=== PATIENT | male | born 1985 | race Caucasian/White ===

== ENCOUNTER 2024-02-21 00:49 | Emergency (ER) | payer OTHER, SELFPAY ==
[2024-02-21] VITALS (8 sets, daily range): BP systolic 145–161; BP diastolic 86–112; PULSE 68–111; RESP 16–20; TEMP 36.4–37.2; O2SAT 95–100; BMI 29.9
--- NOTE | ~2024-02-21 | XR_ITS ---
EXAMINATION: XR LUMBOSACRAL SPINE CLINICAL INFORMATION: Low back pain. COMPARISON: None available. TECHNIQUE: Three views of the lumbosacral spine. FINDINGS: The vertebral bodies and posterior elements are normal. The disc spaces are preserved and the vertebral alignment is normal. The paraspinal soft tissues are normal. XR/XR lumbar spine 2-3V IMPRESSION: No significant abnormality identified.
--- NOTE | 2024-02-21 01:51 | ED.BACK ---
HPI - Back Pain/Injury General Chief Complaint: Back Pain/Injury Stated Complaint: Back pain/ Leg numbness Time Seen by Provider: 02/21/24 01:48 Source: patient Mode of arrival: ambulatory Limitations: no limitations History of Present Illness HPI Narrative: 38-year-old male with history of factor 5 Leiden deficiency, pulmonary embolism presents emergency department for evaluation of lower back pain x3 weeks. The states his pain is gotten progressively worse to the point where he is having difficulty walking. He states the pain is located across his lower back. The pain radiates down both legs with the pain being worse in the left leg than in the right. He states that he is having weakness in both legs. He did not have any loss of bowel or bladder control. He denied fever or chills. He denies injection drug use. The patient gets his care mainly through the [facility] in [place]. He states he has been seen several times at the [facility] and has been treated with multiple medications. He did show me his [facility] patient portal and the patient has been treated with gabapentin 100 mg Q 8h with the dose being increased to gabapentin 300 mg q.8 hours without any relief his pain. He is also given a course of prednisone 50 mg daily for 5 days, lidocaine patches and cyclobenzaprine with no relief his pain. Related Data Previous Rx's ?Medication ?Instructions ?Recorded morphine 15 mg immediate release 15 mg PO Q6H PRN pain #10 tabs 02/21/24 tablet Allergies Allergy/AdvReac Type Severity Reaction Status Date / Time No Known Allergies Allergy Verified 02/21/24 00:56 Review of Systems Review of Systems: Yes all other systems are reviewed and are negative [facility] Social History Social History Advance Directives: No Advance Directives Information Provided: Yes Do you have a plan to hurt others: No Plan Physical Exam Vital Signs: Vital Signs: Last Vital Signs Temp 98.9 F 02/21/24 02:00 Pulse 97 02/21/24 02:00 Resp 16 02/21/24 02:00 BP 150/86 H 02/21/24 02:00 Pulse Ox 98 02/21/24 02:00 O2 Del Method Room Air 02/21/24 02:00 BMI result Body Mass Index 29.9 Vital signs revealed an elevated blood pressure otherwise unremarkable Exam: General: Awake, appears to be in moderate to severe distress secondary to his pain, patient is having difficulty sitting on the stretcher to to his discomfort Head: Normocephalic, atraumatic EENT: PERRL, Lids normal, sclera normal, conjunctiva normal, nose normal , ears normal, throat without erythema or exudates Neck: Supple, no adenopathy Lung: breath sounds symmetric, no wheezing, rales or rhonchi Chest: symmetric movement, nontender Heart: regular rate and rhythm, normal S1, S2 no murmurs or rubs Abdomen: soft, non-tender, nondistended, normal bowel sounds Back: There is tenderness with palpation over his lumbar vertebrae as well as the paraspinal muscles in his lumbar sacral area with spasm of the muscles, left greater than right, patient has significant pain with left straight leg raise and moderate pain with right straight leg raise. Extremities: no deformities, moves all extremities symmetrically Neuro: Awake, alert, oriented, normal speech, cranial nerves intact, patient is able to stand and walk but has a staggering gait secondary to his back pain. Psych: Pleasant, cooperative Medications Administered Discontinued Medications Generic Name Dose Route Start Last Admin Trade Name Freq PRN Reason Stop Dose Admin Morphine Sulfate 4 mg 02/21/24 02:11 02/21/24 02:27 Morphine Sulfate 4 Mg/Ml Cartridge IVPUSH 02/21/24 02:12 4 mg ONCE STA Administration Protocol Ondansetron HCl 4 mg 02/21/24 02:11 02/21/24 02:27 Ondansetron Hcl 4 Mg/2 Ml Vial IVPUSH 02/21/24 02:12 4 mg ONCE ONE Administration Medical Decision Making Medical Decision Making [facility] Narrative: 38-year-old male with history of factor 5 Leiden deficiency, pulmonary embolism presents emergency department for evaluation of lower back pain x3 weeks. He states his pain has gotten progressively worse to the point where he is having difficulty walking. He states the pain is located across his lower back. The pain radiates down both legs with the pain being worse in the left leg than in the right. He states that he is having weakness in both legs. He did not have any loss of bowel or bladder control. He denied fever or chills. He denies injection drug us. [facility] with gabap[facility], prednisone, cyclobenzaprine and lidocaine patches with no relief his pain. Examination did reveal tenderness palpation over the lumbar vertebrae as well as the paraspinal muscles in lumbar sacral area left greater than right with positive straight leg raise on the left but not the right. Differential diagnosis: ?Includes but is not limited to musculoskeletal pain, disc disease, sciatica Following evaluation was ordered: Lumbar spine x-rays Patient was initially treated with the following: Morphine 4 mg IV Q 15 minutes p.r.n. pain x3, Zofran 4 mg IV Course: Patient did get improvement with the above treatment. Patient was advised to continue taking [facility] He was also given a prescription for morphine 15 mg pills, 1 pill every 6 hours as needed for pain. He was also advised to take ibuprofen 400 mg every 6 hours as needed for pain is well. He was given verbal and printed instructions and discharged home. Admission/Observation Consideration of admission/observation: Escalation of care including admission/observation considered Independent Interpretation I performed an independent interpretation of an: Plain X-Ray Interpretation: My independent interpretation of the patient's lumbar sacral x-rays is as follows: No acute disease, no acute fracture, disc space preserved Radiology Impression Discussion of test interpretation with radiology: I have reviewed the radiologist's reading. Radiologist Impression: XR lumbar spine 2-3V IMPRESSION: No significant abnormality identified. Dictated By: Trace Kimble Prescription Management I considered prescription management with: Pain Medication Discharge Plan Discharge Clinical Impression: Lumbar radiculopathy, Strain of lumbar region Patient Disposition: Home, Self-Care Instructions: Lumbar Radiculopathy (ED) Additional Instructions: Continue taking medications [facility]. Take ibuprofen 200 mg pills, 2 pills every 6 hours as needed for pain. Take Tylenol (acetaminophen) 2 pills every 6 hours as needed for pain. For pain not relieved by ibuprofen or Tylenol take morphine 15 mg pills, 1 pill every 4 hours as needed for pain. This medication will make you sleepy, do not drive or work while taking this medication. Morphine is a narcotic medication and can be addicting. If you are concerned about addiction you can ask the pharmacist for less pills or do not get this prescription filled. Follow-up with your doctor in 2 days. Please return to the emergency department if your symptoms get worse or if you develop any symptoms that are concerning to you. Prescriptions: New morphine 15 mg tablet 15 mg PO Q6H PRN (Reason: pain) Qty: 10 0RF Rx Instructions: Patient may request partial fill; Partial Fill upon patient request. Print Language: Malagasy
[2024-02-21] MEDS: ondansetron HCL 4 MG/2 ML VIAL IVPUSH (02:27)
[2024-02-21] MEDS: Morphine Sulfate 4 MG/ML CARTRIDGE IVPUSH ×3 (02:27→05:19)
--- NOTE | 2024-02-21 04:41 | PC.NURSE ---
pyxis out of morphine sup called for a dose.
== END 2024-02-21 07:11 | disposition home or self-care (01) ==
PROVIDERS: Emergency Provider Emergency Medicine Emergency Medical Services
DX: M54.16 Radiculopathy, lumbar region (principal); R20.0 Anesthesia of skin; R26.2 Difficulty in walking, not elsewhere classified
CPT/HCPCS: 72100; 96374; 96375; 96376; 99284; J2270; J2405

== ENCOUNTER 2024-02-26 08:32 | Emergency (ER) | payer OTHER, SELFPAY ==
[2024-02-26 08:57] VITALS: BP 181/108; PULSE 115; RESP 20; TEMP 36.3; O2SAT 99; BMI 29.9
--- NOTE | 2024-02-26 11:06 | ED.BACK ---
HPI - Back Pain/Injury General Chief Complaint: Back Pain/Injury Stated Complaint: Low Back Pain No Injury Time Seen by Provider: 02/26/24 10:40 Source: patient Mode of arrival: ambulatory Limitations: no limitations History of Present Illness HPI Narrative: This is a 38 year old male hx of back pain, factor 5 Leiden deficiency, pulmonary embolism presents emergency department for evaluation of lower back pain x4 weeks. The states his pain is gotten progressively worse to the point where he is having difficulty walking, tells me he was seen here on 02/20 for the same thing but is not feeling any better.. Back pain radiates down both legs but pain seems worse on his left side w/ intermittent numbness and tingling. He states that he is having weakness in both legs but attributes this to the severity of the pain reprots its a stabbing pain. He did not have any loss of bowel or bladder control. He denied fever or chills. He denies injection drug use. He was able to walk in today but very uncomfortable. Is taking morphine at home with little to no relief. Note from 02/21/24 The patient gets his care mainly through [facility] in [place]. He states he has been [facility] and has been treated with multiple medications. [facility] and the patient has been treated with gabapentin 100 mg Q 8h with the dose being increased to gabapentin 300 mg q.8 hours without any relief his pain. He is also given a course of prednisone 50 mg daily for 5 days, lidocaine patches and cyclobenzaprine with no relief his pain. Related Data Previous Rx's ?Medication ?Instructions ?Recorded morphine 15 mg immediate release 15 mg PO Q6H PRN pain #10 tabs 02/21/24 tablet Allergies Allergy/AdvReac Type Severity Reaction Status Date / Time No Known Allergies Allergy Verified 02/26/24 09:00 Review of Systems Review of Systems: Constitutional : No Weight loss, No Fever, No Chills, ENT/Mouth : No Hearing loss, No Ear Pain, No Nasal Congestion, No Sinus Pain, No Hoarseness, No sore throat, No Rhinorrhea, No Swallowing Difficulty Cardiovascular : No Chest Pain, No SOB Respiratory : No Cough, No Dyspnea Gastrointestinal : No Nausea, No Vomiting, No Diarrhea, No abdominal Pain, No Hematochezia, No Melena Genitourinary : No Dysuria, No Urinary Frequency, No Hematuria, No Urinary Incontinence, Musculoskeletal : positive back pain Skin : No Skin Lesions, No rash Neuro : No Weakness, No Numbness, No Paresthesias, no loss of bowel or bladder incontinence, no saddle anesthesia Yes all other systems are reviewed and are negative [facility] Past Medical History Attestation statement: The following information was validated with the patient. Source: old records reviewed and nursing notes reviewed Social History Social History Alcohol intake: never Smoked in Last 30 Days: Yes Use of substances other than those prescribed or required for medical reasons: No Advance Directives: No Do you have a plan to hurt others: No Plan Physical Exam Vital Signs: Vital Signs: Last Vital Signs Temp 97.4 F 02/26/24 08:57 Pulse 115 H 02/26/24 08:57 Resp 20 02/26/24 08:57 BP 181/108 H 02/26/24 08:57 Pulse Ox 99 02/26/24 08:57 O2 Del Method Room Air 02/26/24 08:57 BMI result Body Mass Index 29.9 vss Appearance: Alert.? Oriented X3.? No acute cardiopulmonary distress. Patient appears uncomfortable. Unable to be still on the stretcher Head: Normocephalic, atraumatic, no step-offs or deformities Eyes: Pupils equal, round and reactive to light.? Neck: Normal inspection.? Neck supple.? CVS: Normal heart rate and rhythm.? Pulses normal.? Respiratory: No respiratory distress.? Breath sounds normal.? Abdomen: Soft and nontender.? Skin: Skin warm and dry.? Normal skin color.? Normal skin turgor.? Extremities: No lower extremity edema.? No calf ttp. 5/5 strength to bilateral upper and 3/5 to lower extremities Back: +There is tenderness with palpation over his lumbar vertebrae as well as the paraspinal muscles in his lumbar sacral area with spasm of the muscles, left greater than right, patient has significant pain with left straight leg raise and moderate pain with right straight leg raise. , no C-spine tenderness, full range of motion, no CVA tenderness bilaterally Neuro: Oriented X 3.? No motor deficit.? No sensory deficit. CN 2-12 intact . Ambulating w/ slow staggered gait no saddle paresthesias. Course Reevaluation(s) Reevaluation #1: Obtain records from [facility] in [place], patient has a large disc protrusion at L5-S1 causing advanced high-grade canal central stenosis. This is concerning as patient does have lower extremity weakness and intermittent numbness and tingling concerning for neurological deficits. Will reach out to [facility] Time: 11:35 Reevaluation #2: [facility] closed due to capacity Time: 11:44 Reevaluation #3: Call out to [facility], surgeon is in a procedure will call back when its over. Time: 12:00 Additional Reevaluation(s): Dr. Amin neurosurgery from [facility] accepts this patient patient will be an ED to ED transfer. Patient is agreeable to this transfer. Will send results of MRI with patient. Educated patient on diagnosis and treatment plan, answered all question, patient verbalizes understanding. Patient states he took two bites of fries on accident. Medications Administered Discontinued Medications Generic Name Dose Route Start Last Admin Trade Name Clintonq PRN Reason Stop Dose Admin Acetaminophen 975 mg 02/26/24 11:06 02/26/24 11:49 Acetaminophen 325 Mg Tablet PO 02/26/24 11:07 975 mg ONCE ONE Administration Diazepam 2 mg 02/26/24 11:06 02/26/24 11:50 Diazepam 2 Mg Tablet PO 02/26/24 11:07 2 mg ONCE ONE Administration Hydromorphone HCl 2 mg 02/26/24 11:41 02/26/24 11:50 Hydromorphone Hcl 2 Mg Tablet PO 02/26/24 11:42 2 mg ONCE ONE Administration Ketorolac Tromethamine 30 mg 02/26/24 11:06 02/26/24 11:50 Ketorolac Tromethamine 30 Mg/Ml Vial IM 02/26/24 11:07 30 mg ONCE ONE Administration Lidocaine 1 patch 02/26/24 11:06 02/26/24 11:52 Lidocaine 4 % Patch Adh..Patch TRANSDERMA 02/26/24 11:07 1 patch ONCE ONE Administration Protocol Medical Decision Making Medical Decision Making MDM Narrative: 38 year old male presents w/ back pain, was seen here on 02/21/24 d/c with morphine, little to no relief. Had an MRI at [facility] in [place] on Sunday ( gave consent to obtain records) PE There is tenderness with palpation over his lumbar vertebrae as well as the paraspinal muscles in his lumbar sacral area with spasm of the muscles, left greater than right, patient has significant pain with left straight leg raise and moderate pain with right straight leg raise. Patient appears uncomfortable History and physical exam concerning for musculoskeletal pain lumbar/thoracic sprain or strain versus lumbar radiculopathy versus lumbago versus disc disease versus sciatica. Unlikely cauda equina, cord compression, epidural abscess Plan- will request records and medicate for pain. Differential Diagnosis Differential Diagnoses: The differential diagnosis associated with the presentation includes History and physical exam concerning for musculoskeletal pain lumbar/thoracic sprain or strain versus lumbar radiculopathy versus lumbago versus disc disease versus sciatica. Unlikely cauda equina, cord compression, epidural abscess Admission/Observation Consideration of admission/observation: Escalation of care including admission/observation considered Lab Data MDM Lab Attestation statement: I reviewed the patient's lab results. Tests considered The following testing was considered but not selected: No red flag sx --> no indication for emergent MRI Prescription Management I considered prescription management with: Pain Medication Chronic Conditions Patient?s care impacted by: Other (PE not on thinners, factor 5 ) Critical Care Time Critical Care Time Critical Care Time: Yes Total Critical Care Time: 45 Attestation: I attest to this time spent taking care of the patient, obtaining history, physical, reviewing labs, imaging, speaking to my attending, specialist or hospitalist. Discharge Plan Discharge Clinical Impression: Lumbar disc herniation, Bilateral leg weakness Patient Disposition: [facility] Transfer Details: Dr. Amin & Dr. Martins [facility] ED --> ED Prescriptions: No Action morphine 15 mg tablet 15 mg PO Q6H PRN (Reason: pain) Qty: 10 0RF Rx Instructions: Patient may request partial fill; Partial Fill upon patient request. Print Language: Eritrean
[2024-02-26] MEDS: Acetaminophen 325 MG TABLET 975 MG PO (11:49)
[2024-02-26] MEDS: diazePAM 2 MG TABLET PO (11:50)
[2024-02-26] MEDS: HYDROmorphone HCl 2 MG TABLET PO (11:50)
[2024-02-26] MEDS: Ketorolac Tromethamine 30 MG/ML VIAL IM (11:50)
[2024-02-26] MEDS: Lidocaine 4 % Patch ADH..PATCH 1 PATCH TRANSDERMA (11:52)
--- NOTE | 2024-02-26 13:02 | PC.NURSE ---
pt comes from home, presents to [facility] in wheelchair from waiting room. appears to be in significant amount of pain, moaning, unable to stand or sit without leaning to right side. pt appears to be weak when transferring from wheelchair to stretcher. pt medicated per mar with significant relief in pain. pt NPO and aware due to transfer to [facility]. pt visitors at bedside. plan of care ongoing.
--- NOTE | 2024-02-26 13:34 | PC.NURSE ---
nurse to nurse report given to TONYA Sagatsume in [facility].
--- NOTE | 2024-02-26 13:39 | PC.NURSE ---
pt left with EMS while t/w was in medicating another pt. t/w unable to obtain vital signs before pt transferred out of [facility].
[2024-02-26 13:40] VITALS: BP 181/108; PULSE 115; RESP 20; TEMP 36.3; O2SAT 99
== END 2024-02-26 13:41 | disposition short-term general hospital (02) ==
PROVIDERS: Emergency Provider Emergency Medicine
DX: M51.27 Other intervertebral disc displacement, lumbosacral region (principal); R53.1 Weakness; Z79.52 Long term (current) use of systemic steroids; Z79.899 Other long term (current) drug therapy
CPT/HCPCS: 96372; 99285; J1885

== ENCOUNTER 2024-05-21 23:26 | Emergency (ER) | payer OTHER, SELFPAY ==
[2024-05-21 23:41] VITALS: BP 144/90; PULSE 89; RESP 18; TEMP 36.7; O2SAT 98; BMI 30.1
[2024-05-22 02:17] VITALS: BP 144/90; PULSE 89; RESP 18; TEMP 36.7; O2SAT 98
--- NOTE | 2024-05-22 02:32 | ED.BACK ---
HPI - Back Pain/Injury General Chief Complaint: Back Pain/Injury Stated Complaint: back popped+ severe pain, back surgery 2month ago Time Seen by Provider: 05/22/24 02:32 Source: patient Mode of arrival: ambulatory Limitations: no limitations History of Present Illness ED Provider: conrado GUTIERREZ Narrative: Patient is status post lumbar laminectomy 2 months ago was doing good following physical therapy was sitting on the couch at 08:00 went to stand of suddenly felt popping sensation in the lower back went to sleep woke up complaining of increased pain radiating to the both lower extremity more on the left side same as in the past no bladder or bowel involvement patient able to ambulate no numbness or tingling sensation no dermatomal sensory loss Related Data Previous Rx's ?Medication ?Instructions ?Recorded morphine 15 mg immediate release 15 mg PO Q6H PRN pain #10 tabs 02/21/24 tablet cyclobenzaprine 10 mg tablet 10 mg PO Q8H #20 tabs 05/22/24 morphine 15 mg immediate release 15 mg PO Q8H PRN pain #15 tabs 05/22/24 tablet Allergies Allergy/AdvReac Type Severity Reaction Status Date / Time No Known Allergies Allergy Verified 05/21/24 23:45 Review of Systems Review of Systems: Yes all other systems are reviewed and are negative [facility] Social History Social History Alcohol intake: never Smoked in Last 30 Days: Yes Substance Use Type: Marijuana Advance Directives: No Advance Directives Information Provided: No Do you have a plan to hurt others: No Plan Physical Exam Vital Signs: Vital Signs: Last Vital Signs Temp 98.0 F 05/22/24 03:02 Pulse 89 05/22/24 03:02 Resp 18 05/22/24 03:02 BP 144/90 H 05/22/24 03:02 Pulse Ox 98 05/22/24 03:02 O2 Del Method Room Air 05/22/24 03:02 BMI result Body Mass Index 30.1 Appearance: Alert. Oriented X3. No acute distress. Neck: Normal inspection. Neck supple. CVS: Normal heart rate and rhythm. Pulses normal. Respiratory: No respiratory distress. Equal air entry bilateral, Abdomen: Soft and nontender. Bowel sounds are present, no mass palpable, no CVA tenderness Skin: Skin warm and dry. Normal skin color. Normal skin turgor. Extremities: No lower extremity edema. No calf tenderness Back: Diffuse tenderness L2-L3 area with paraspinal spasm SLR negative on right side positive at 45 degrees left side sacral sensation intact Neuro: Oriented X 3. No motor deficit. No sensory deficit.No cerebellar signs , cranial nerves II-XII intact Medications Administered Discontinued Medications Generic Name Dose Route Start Last Admin Trade Name Freq PRN Reason Stop Dose Admin Cyclobenzaprine HCl 10 mg 05/22/24 02:33 05/22/24 02:48 Cyclobenzaprine Hcl 10 Mg Tablet PO 05/22/24 02:34 10 mg ONCE ONE Administration Morphine Sulfate 15 mg 05/22/24 02:32 05/22/24 02:48 Morphine Sulfate Immed Release 15 Mg Tablet PO 05/22/24 02:33 15 mg ONCE ONE Administration Medical Decision Making Medical Decision Making [facility] Narrative: Patient with low back pain status post surgery noticed sudden increase in the pain likely muscle spasm patient for advised to follow up with surgeon no signs of spinal cord injury Discharge Plan Discharge Clinical Impression: Strain of lumbar region, Lumbar radiculopathy Patient Disposition: Home, Self-Care Instructions: Acute Low Back Pain (ED), Lumbar Radiculopathy (ED) Additional Instructions: Rest at home Apply ice Take pain medication and muscle relaxant as advised Follow with your surgeon Prescriptions: New cyclobenzaprine 10 mg tablet 10 mg PO Q8H Qty: 20 0RF morphine 15 mg tablet 15 mg PO Q8H PRN (Reason: pain) Qty: 15 0RF Rx Instructions: Partial Fill upon patient request. No Action morphine 15 mg tablet 15 mg PO Q6H PRN (Reason: pain) Qty: 10 0RF Rx Instructions: Patient may request partial fill; Partial Fill upon patient request. Interventions: ED Discharge Assessment Last Done: 05/22/24 03:02 Discharge Date/Time: 05/22/24 03:03 Print Language: Macedonian
[2024-05-22] MEDS: Morphine Sulfate Immed Release 15 MG TABLET PO (02:48)
[2024-05-22] MEDS: Cyclobenzaprine HCl 10 MG TABLET PO (02:48)
[2024-05-22 03:02] VITALS: BP 144/90; PULSE 89; RESP 18; TEMP 36.7; O2SAT 98
== END 2024-05-22 03:03 | disposition home or self-care (01) ==
PROVIDERS: Emergency Provider Internal Medicine
DX: M54.16 Radiculopathy, lumbar region (principal)
CPT/HCPCS: 99283; 99284